=== PATIENT | female | born 1980 | race American Indian/Alaskan Native ===

== ENCOUNTER 2019-03-30 22:09 | Emergency (ER) | payer OTHER ==
[2019-03-30 22:33] VITALS: BP 139/70
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
[2019-03-31] MEDS ORDERED: IBUPROFEN PO ONE (00:19)
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
== END 2019-03-31 01:09 | disposition home or self-care (01) ==
LOC: ED 22:09
DX: S39.012A Strain of muscle, fascia and tendon of lower back, initial encounter (principal); S66.912A Strain of unspecified muscle, fascia and tendon at wrist and hand level, left hand, initial encounter; S46.912A Strain of unspecified muscle, fascia and tendon at shoulder and upper arm level, left arm, initial encounter; Z79.899 Other long term (current) drug therapy; V49.49XA Driver injured in collision with other motor vehicles in traffic accident, initial encounter; Y93.89 Activity, other specified; Y92.89 Other specified places as the place of occurrence of the external cause; Y99.8 Other external cause status
CPT/HCPCS: 72100